=== PATIENT | female | born 1940 | race Hispanic/Latino ===

== ENCOUNTER → 2017-06-12 | Outpatient (CLI) | payer OTHER ==
[~2017-06-12] MED LIST: IOPAMIDOL-370 75 ML VIAL IV ONE
== END ==
LOC: RAH 08:39
PROVIDERS: ATTEND Internal Medicine
DX: K42.9 Umbilical hernia without obstruction or gangrene (principal); Z90.49 Acquired absence of other specified parts of digestive tract; Z90.5 Acquired absence of kidney
CPT/HCPCS: 74170; Q9967

== ENCOUNTER → 2018-06-25 | Outpatient (CLI) | payer OTHER | END | disposition home or self-care (01) | LOC: RAH 13:57 | PROVIDERS: ATTEND Internal Medicine | DX: I73.9 Peripheral vascular disease, unspecified (principal) | CPT/HCPCS: 93925 ==

== ENCOUNTER → 2022-10-25 | Outpatient (CLI) | payer OTHER | END | disposition home or self-care (01) | LOC: RAH 13:02 | PROVIDERS: ATTEND Internal Medicine | DX: Z12.31 Encounter for screening mammogram for malignant neoplasm of breast (principal) | CPT/HCPCS: 77067 ==

== ENCOUNTER 2023-06-25 05:52 | Day surgery (SDC) | payer OTHER ==
[2023-06-20 10:09] LABS: BASOPHILS # (AUTO) 0.02 K/uL (0.00-0.20); BASOPHILS % (AUTO) 0.4 % (0.0-5.0); EOSINOPHILS # (AUTO) 0.09 K/uL (0.00-0.70); EOSINOPHILS % (AUTO) 1.6 % (0.0-8.0); HEMATOCRIT 44.4 % (36-48); IMMATURE GRANULOCYTE ABSOLUTE 0.02 K/uL (0-1); LYMPHOCYTES # (AUTO) 1.5 K/uL (1.0-4.8); LYMPHOCYTES % (AUTO) 26.1 % (21.0-51.0); MEAN CORPUSCULAR HGB CONC 32.9 g/dL (32.0-36.0); MEAN CORPUSCULAR VOLUME 85.2 fL (79-99); MONOCYTES # (AUTO) 0.4 K/uL (0.1-1.0); MONOCYTES % (AUTO) 7.1 % (3.0-13.0); NEUTROPHILS # (AUTO) 3.7 K/uL (1.8-7.7); NEUTROPHILS % (AUTO) 64.4 % (40.0-77.0); PLATELET COUNT (AUTO) 207 K/uL (130-400); RED BLOOD CELL COUNT(AUTO) 5.21 MIL/uL (4.00-5.50); RED CELL DISTRIBUTION WIDTH 13.7 % (11.0-15.5); WHITE BLOOD COUNT (AUTO) 5.7 K/uL (4.8-10.8)
[2023-06-20 10:17] LABS: POTASSIUM 4.3 mmol/L (3.5-5.1)
[2023-06-20 10:20] VITALS: BP 176/90; PULSE 50; RESP 18
[2023-06-20 10:28] LABS: INR <= 0.93 (0.85-1.15); PROTHROMBIN TIME 10.8 SEC (9.6-11.6)
[2023-06-20 10:30] LABS: PARTIAL THROMBOPLASTIN TIME 28.6 SEC (26.3-35.5)
[~2023-06-25] VITALS: Ht 162.6 cm; Wt 59.1 kg
[2023-06-25] VITALS (15 sets, daily range): BP systolic 144–173; BP diastolic 52–81; PULSE 5–62; RESP 12–18
[~2023-06-25 05:52] MED LIST changes: +AMLO-258 PO; +CLOP75TA32 PO; +EZET10TA48 PO; -IOPAMIDOL-370 75 ML VIAL IV ONE; +LISI20TA24 PO; +METO-391 PO
[2023-06-25] MEDS ORDERED: ONDANSETRON 4MG INJ ONE (07:13)
[2023-06-25] MEDS ORDERED: SUCCINYLCHOLINE CHLORIDE 20 MG/ML 10 ML VIAL ONE (07:13)
[2023-06-25] MEDS ORDERED: ROCURONIUM BROMIDE 10MG/1ML 5ML VL ONE (07:14)
[2023-06-25] MEDS ORDERED: FENTANYL CITRATE PF 50 MCG/1 ML 2ML VIAL ONE (07:14)
[2023-06-25] MEDS ORDERED: PROPOFOL 10 MG/ML 20ML VIAL IV ONE (07:14)
[2023-06-25] MEDS: CEFAZOLIN SODIUM 2 GM VIAL ONE (07:46)
[2023-06-25] MEDS ORDERED: PHENYLEPHRINE HCL 10 MG/ML 1ML VIAL IV ONE (07:46)
[2023-06-25] MEDS: BUPIVACAINE/PF 0.25% 30ML VIAL IJ ONE (07:56)
[2023-06-25] MEDS ORDERED: METH-662 PO (08:18)
[2023-06-25] MEDS ORDERED: GABA-529 PO (08:18)
[2023-06-25] MEDS ORDERED: TRAM50TA4 PO (08:18)
[2023-06-25] MEDS ORDERED: DOCU-116 PO (08:18)
[2023-06-25] MEDS: LACTATED RINGERS 1000ML 1,000 ML IV ONE (09:11)
[2023-06-25] MEDS: TRAMADOL HCL 50 MG TABLET PO ONE (09:43)
== END 2023-06-25 10:20 | disposition home or self-care (01) ==
LOC: DAH 05:52
PROVIDERS: ATTEND Surgery
DX: R22.31 Localized swelling, mass and lump, right upper limb (principal); C64.1 Malignant neoplasm of right kidney, except renal pelvis; I12.0 Hypertensive chronic kidney disease with stage 5 chronic kidney disease or end stage renal disease; N18.6 End stage renal disease; Z79.01 Long term (current) use of anticoagulants; Z79.899 Other long term (current) drug therapy; Z88.5 Allergy status to narcotic agent; Z82.49 Family history of ischemic heart disease and other diseases of the circulatory system; Z83.3 Family history of diabetes mellitus; Z80.0 Family history of malignant neoplasm of digestive organs; Z90.49 Acquired absence of other specified parts of digestive tract; Z90.710 Acquired absence of both cervix and uterus
CPT/HCPCS: 11406; 80048; 85025; 85610; 85730; 36415; 93005; 88307; A6260; A4663; J7120; J3010; J0330; J0665; J3490; J2704; J2405; J2371; J0690; A4930 ×2; A4215; A4223; A4222; A4221; A4600